=== PATIENT | female | born 1985 | race Caucasian/White ===

== ENCOUNTER 2023-09-24 14:43 | Emergency (ER) | payer SELFPAY ==
[2023-09-24 14:57] VITALS: BP 132/95
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
[2023-09-24] MEDS: TYLENOL 650 MG PO (16:27)
[2023-09-24] MEDS: LIDOCAINE 4% PATCH 1 PATCH TOPICAL (16:28)
== END 2023-09-24 20:40 | disposition home or self-care (01) ==
LOC: EMR 14:43
PROVIDERS: EMERGENCY PHYSICIAN Student in an Organized Health Care Education/Training Program
DX: M54.2 Cervicalgia (principal); M25.512 Pain in left shoulder; M25.551 Pain in right hip; V49.40XA Driver injured in collision with unspecified motor vehicles in traffic accident, initial encounter; Y92.410 Unspecified street and highway as the place of occurrence of the external cause
CPT/HCPCS: 99284; 72125; 73030; 73110; 73140; 73502; 73590

== ENCOUNTER 2024-03-24 04:27 | Emergency (ER) | payer OTHER, SELFPAY ==
[2024-03-24 04:32] VITALS: BP 110/75
[2024-03-24 05:00] LABS: % Basophils 0.2 % (0-2); % Eosinophils 0.4 % (0-6); % Immature Granulocytes 0.5 % (0-0.5); % Lymphocytes 2.7 % (20.5-51.1); % Monocytes 2.8 % (1.7-9.3); % Neutrophils 93.4 % (42.2-75.2); Absolute Immature Granulocytes 0.1 10^3/uL (0-0.05); Absolute Lymphocytes 0.3 10^3/uL (1.2-3.4); Absolute Monocytes 0.3 10^3/uL (0.1-0.6); Absolute Neutrophils 8.9 10^3/uL (1.4-6.5); Hemoglobin 12.3 g/dL (12.0-16.0); Mean Corp Hgb Conc. 36.2 g/dL (33.0-37.0); Mean Corpuscular Hgb 32.1 pg (27.0-31.0); Mean Corpuscular Volume 88.8 fL (81.0-99.0); Mean Platelet Volume 9.8 fL (7.4-10.4); Nucleated Red Blood Cells % 0 %; Platelet Count 198 10^3/uL (130-400); Red Blood Cell Count 3.83 10^6/uL (4.20-5.40); Red Cell Dist. Width 13.1 % (11.5-14.5); White Blood Cell Count 9.5 10^3/uL (4.8-10.8)
[2024-03-24 05:15] LABS: ALT (SGPT) 13 U/L (0-35); AST (SGOT) 19 U/L (14-36); Albumin 3.9 g/dl (3.5-5.0); Alkaline Phosphatase 57 U/L (38-126); Blood Urea Nitrogen 3 mg/dl (7-17); Calcium 8.8 mg/dl (8.4-10.2); Carbon Dioxide 21 mmol/L (22-30); Chloride 101 mmol/L (98-107); Glucose 118 mg/dl (70-99); Potassium 3.5 mmol/L (3.5-5.1); Sodium 133 mmol/L (135-145); Total Protein 6.4 g/dl (6.3-8.2); eGFR > 60.00
[2024-03-24 07:29] VITALS: BP 126/73
--- NOTE | 2024-03-24 07:45 | ED.GENMED ---
History of Present Illness
General
Chief Complaint: Abdominal Symptoms
Time Seen by Provider: 03/24/24 07:35
History of Present Illness
History of Present Illness:
38-year-old female presents to the emergency department for evaluation of nausea and vomiting beginning today. She has also had mild diarrhea. She is 18 weeks . She has been feeling movements until today and she feels nothing
currently. No vaginal discharge or bleeding. No fever or chills.
Past History
Past History
ED Past Medical History: Other (Vertigo)
ED Past Surgical History: Cholecystectomy and
Social History
Tobacco: Non-smoker
Alcohol: Occasional
Personal:
Living: with family
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
Review of Systems
Review of Systems
Allergies reviewed?: Yes
All Other Systems: ROS reviewed and negative except as documented in HPI and ROS
Phy Exam
Physical Exam
Physical Exam:
GEN: Well appearing, NAD, WDWN
HEENT: Oral mucosa moist, no scleral icterus
Cardiac: Regular rate and rhythm, no murmur
Lung: No respiratory distress, no tachypnea, lungs clear to auscultation bilaterally
MSK: No gross deformity or injuries
Skin: Good color, no pallor or jaundice, no rashes
Neuro: AO x3, moves all extremities freely
Psych: Calm, cooperative
Course
Orders/Labs/Results
Orders:
Orders
03/24/24 04:42
Complete Blood Count/With Diff Urgent
Comprehensive Metabolic Panel Urgent
03/24/24 07:18
Electrocardiogram (*1) Urgent
Reason for Study: Chest Pain
EKG- Treatment ONCE
03/24/24 07:44
Ondansetron Injectable [Zofran] 4 mg IV NOW STA
US Limited Urgent
Comment:
Reason For Exam: 2nd trimester pelvic pain/ low movement
03/24/24 07:45
Ondansetron Injectable [Zofran] 4 mg .ROUTE .STK-MED ONE
03/24/24 09:22
Acetaminophen [Tylenol] 1,000 mg PO NOW STA
Abnormal Lab Results
03/24/24
04:42
RBC 3.83 L 10^6/uL
(4.20-5.40)
Hct 34.0 L %
(37.0-47.0)
MCH 32.1 H pg
(27.0-31.0)
Abs Immat Gran (auto) 0.1 H 10^3/uL
(0-0.05)
Absolute Neuts (auto) 8.9 H 10^3/uL
(1.4-6.5)
Absolute Lymphs (auto) 0.3 L 10^3/uL
(1.2-3.4)
Neutrophils % 93.4 H %
(42.2-75.2)
Lymphocytes % 2.7 L %
(20.5-51.1)
Sodium 133 L mmol/L
(135-145)
Carbon Dioxide 21 L mmol/L
(22-30)
BUN 3 L mg/dl
(7-17)
Creatinine 0.4 L mg/dL
(0.6-1.0)
Glucose 118 H mg/dl
(70-99)
03/24/24 04:42
03/24/24 04:42
Vital Signs
Initial and Last Documented VS:
Initial Vital Signs
Temp Pulse Resp BP Pulse Ox
99.2 F 101 18 110/75 100
03/24/24 04:32 03/24/24 04:32 03/24/24 04:32 03/24/24 04:32 03/24/24 04:32
Last Documented Vital Signs
Temp Pulse Resp BP Pulse Ox
98.5 F 98 16 102/60 98
03/24/24 09:29 03/24/24 09:29 03/24/24 09:29 03/24/24 09:29 03/24/24 09:29
MDM/Problems Addressed
MDM/Problems Addressed:
Ultrasound performed showing no evidence for distress at this time. Most likely self-limited viral syndrome, discussed supportive care. Patient able to tolerate p.o. fluids at time of discharge
*Critical Care Note
Total Time (30-74mins, 75-104mins- exclusive of procedures): Not Applicable
ED Attending Note
-
Portions of this chart may have been created with voice recognition software.� Occasional wrong word or��sound alike� substitutions may have occurred due to the inherent limitations of voice recognition software.
Discharge Plan
Departure
Patient Disposition: Home (Routine Discharge)
Date of Disposition: 03/24/24
Time of Disposition: 09:52
Patient with high blood pressure during this ER visit?: No
Discharge Problem:
Gastroenteritis
Instructions: Nausea and Vomiting, Adult (DC)
Prescriptions:
New
ondansetron 4 mg tablet,disintegrating
4 mg PO TIDPRN PRN (Reason: nausea/vomiting) Qty: 20 0RF
No Action
acetaminophen 325 MG tablet
650 mg PO Q3HPRN PRN (Reason: mild pain) Qty: 0 0RF
sennosides-docusate sodium 1 TABLET tablet
1 tab PO DAILYPRN PRN (Reason: constipation) Qty: 0 0RF
ondansetron 4 mg tablet,disintegrating
4 mg PO Q8H PRN (Reason: nausea and vomiting) 5 Days Qty: 14 0RF
meclizine 25 mg tablet
25 mg PO BID PRN (Reason: dizziness) Qty: 20 0RF
Referrals:
NONE,* [Family Provider] -
Interventions
Interventions:
*Risk Screen - Suicide Last Done: 03/24/24 04:32
*General Assessment Last Done: 03/24/24 04:32
*Neglect/Abuse Screening Last Done: 03/24/24 04:32
ED- Fall Risk Assessment Last Done: 03/24/24 09:29
*ED COVID-19 Vaccine History Last Done: 03/24/24 04:32
*Nursing Disposition Last Done: 03/24/24 10:00
JV-Tbdahw-Klonpvtixo Assessment Last Done: 03/24/24 09:29
Discharge Date and Time
Discharge Date/Time: 03/24/24 10:00
Print Language: VENEZUELAN
[2024-03-24] MEDS: ZOFRAN 4 MG IV (07:47)
[2024-03-24] MEDS: TYLENOL 1000 MG PO (09:26)
[2024-03-24 09:28] VITALS: BMI 36.9
[2024-03-24 09:29] VITALS: BP 102/60
== END 2024-03-24 10:00 | disposition home or self-care (01) ==
LOC: EMR 04:27
PROVIDERS: Student in an Organized Health Care Education/Training Program; EMERGENCY PHYSICIAN Emergency Medicine
DX: K52.9 Noninfective gastroenteritis and colitis, unspecified (principal); O26.892 Other specified pregnancy related conditions, second trimester; Z3A.18 18 weeks gestation of pregnancy
CPT/HCPCS: 99285; 96374; 76815; 80053; 85025; 93005

== ENCOUNTER 2024-03-26 17:03 | Emergency (ER) | payer OTHER, SELFPAY ==
[2024-03-26 17:06] VITALS: BP 123/80
[2024-03-26 17:34] LABS: % Basophils 0.3 % (0-2); % Eosinophils 0.7 % (0-6); % Immature Granulocytes 0.3 % (0-0.5); % Lymphocytes 11.4 % (20.5-51.1); % Monocytes 5.3 % (1.7-9.3); Absolute Eosinophils 0.1 10^3/uL (0-0.7); Absolute Lymphocytes 0.9 10^3/uL (1.2-3.4); Absolute Monocytes 0.4 10^3/uL (0.1-0.6); Absolute Neutrophils 6.3 10^3/uL (1.4-6.5); Hematocrit 37.7 % (37.0-47.0); Hemoglobin 13.1 g/dL (12.0-16.0); Mean Corp Hgb Conc. 34.7 g/dL (33.0-37.0); Mean Corpuscular Hgb 31.7 pg (27.0-31.0); Mean Corpuscular Volume 91.3 fL (81.0-99.0); Mean Platelet Volume 9.8 fL (7.4-10.4); Nucleated Red Blood Cells % 0 %; Platelet Count 212 10^3/uL (130-400); Red Blood Cell Count 4.13 10^6/uL (4.20-5.40); Red Cell Dist. Width 13.5 % (11.5-14.5); White Blood Cell Count 7.6 10^3/uL (4.8-10.8)
[2024-03-26 17:55] LABS: ALT (SGPT) 14 U/L (0-35); AST (SGOT) 20 U/L (14-36); Albumin 4.3 g/dl (3.5-5.0); Alkaline Phosphatase 67 U/L (38-126); Blood Urea Nitrogen 2 mg/dl (7-17); Carbon Dioxide 24 mmol/L (22-30); Chloride 101 mmol/L (98-107); Glucose 96 mg/dl (70-99); Potassium 3.1 mmol/L (3.5-5.1); Sodium 135 mmol/L (135-145); Total Bilirubin 1.1 mg/dl (0.2-1.3); eGFR > 60.00
[2024-03-26 19:05] VITALS: BP 122/74
[2024-03-26] MEDS: NSS 1000 IV ×2 (19:08→21:41)
[2024-03-26] MEDS: ZOFRAN 4 MG IV (19:09)
--- NOTE | 2024-03-26 20:13 | ED.GENMED ---
History of Present Illness
<Brian Berman PA-C - Last Filed: 03/26/24 21:35>
General
Chief Complaint: Abdominal Symptoms
Exam Limitations: none
Time Seen by Provider: 03/26/24 18:17
History of Present Illness
History of Present Illness:
38-year-old female currently 18 weeks presents with recurrent nausea and vomiting now with diarrhea. She was here several nights ago for the same. No known sick contacts. She states his vomiting is different than what she typically has
with her pregnancies. She notes achiness with sore throat and cough now as well. No blood in the vomit or the stool. No urinary symptoms. No vaginal bleeding.
Past History
<Brian Berman PA-C - Last Filed: 03/26/24 21:35>
Past History
ED Past Medical History: Other (Vertigo)
ED Past Surgical History: Cholecystectomy and
Social History
Tobacco: Non-smoker
Alcohol: Occasional
Personal:
Living: with family
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
Phy Exam
<Brian Berman PA-C - Last Filed: 03/26/24 21:35>
Physical Exam
Physical Exam:
General: Well-appearing female no acute respiratory distress
HEENT: Normocephalic atraumaticPosterior pharynx without erythema or exudate neck is supple no adenopathy heart: Regular rate and rhythm no murmurs
Lungs: Clear no wheeze
Abd: soft, nontender, nondistended
Extremities: No cyanosis or edema
Course
<LAURA Mathews Last Filed: 03/26/24 21:35>
Orders/Labs/Results
Orders:
Orders
03/26/24 17:21
Complete Blood Count/With Diff Urgent
Comprehensive Metabolic Panel Urgent
03/26/24 18:47
0.9% Sodium Chloride 1000 ml [Nss] 1,000 ml IV BOLUS
Ondansetron Injectable [Zofran] 4 mg IV NOW STA
03/26/24 20:20
COVID-19 Antigen Urgent
Source: Nasal Swab
Influenza A+B Rapid Molecular Urgent
DIANA Source: Nasal Swab
Specimen Description:
03/26/24 21:26
0.9% Sodium Chloride 1000 ml [Nss] 1,000 ml IV BOLUS
Oseltamivir Phosphate [Tamiflu] 75 mg PO NOW STA
Abnormal Lab Results
03/26/24
17:21
RBC 4.13 L 10^6/uL
(4.20-5.40)
MCH 31.7 H pg
(27.0-31.0)
Absolute Lymphs (auto) 0.9 L 10^3/uL
(1.2-3.4)
Neutrophils % 82.0 H %
(42.2-75.2)
Lymphocytes % 11.4 L %
(20.5-51.1)
Potassium 3.1 L mmol/L
(3.5-5.1)
BUN 2 L mg/dl
(7-17)
Creatinine 0.5 L mg/dL
(0.6-1.0)
03/26/24 17:21
03/26/24 17:21
Vital Signs
Initial and Last Documented VS:
Initial Vital Signs
Temp Pulse Resp BP Pulse Ox
37.0 C 97 18 123/80 99
03/26/24 17:06 03/26/24 17:06 03/26/24 17:06 03/26/24 17:06 03/26/24 17:06
Last Documented Vital Signs
Temp Pulse Resp BP Pulse Ox
37.0 C 94 24 108/67 99
03/26/24 17:06 03/26/24 22:15 03/26/24 22:15 03/26/24 22:00 03/26/24 22:15
<Isaura Lee PA-C - Last Filed: 03/26/24 23:49>
Orders/Labs/Results
Orders:
Orders
03/26/24 17:21
Complete Blood Count/With Diff Urgent
Comprehensive Metabolic Panel Urgent
03/26/24 18:47
0.9% Sodium Chloride 1000 ml [Nss] 1,000 ml IV BOLUS
Ondansetron Injectable [Zofran] 4 mg IV NOW STA
03/26/24 20:20
COVID-19 Antigen Urgent
Source: Nasal Swab
Influenza A+B Rapid Molecular Urgent
DIANA Source: Nasal Swab
Specimen Description:
03/26/24 21:26
0.9% Sodium Chloride 1000 ml [Nss] 1,000 ml IV BOLUS
Oseltamivir Phosphate [Tamiflu] 75 mg PO NOW STA
Abnormal Lab Results
03/26/24
17:21
RBC 4.13 L 10^6/uL
(4.20-5.40)
MCH 31.7 H pg
(27.0-31.0)
Absolute Lymphs (auto) 0.9 L 10^3/uL
(1.2-3.4)
Neutrophils % 82.0 H %
(42.2-75.2)
Lymphocytes % 11.4 L %
(20.5-51.1)
Potassium 3.1 L mmol/L
(3.5-5.1)
BUN 2 L mg/dl
(7-17)
Creatinine 0.5 L mg/dL
(0.6-1.0)
03/26/24 17:21
03/26/24 17:21
Vital Signs
Initial and Last Documented VS:
Initial Vital Signs
Temp Pulse Resp BP Pulse Ox
37.0 C 97 18 123/80 99
03/26/24 17:06 03/26/24 17:06 03/26/24 17:06 03/26/24 17:06 03/26/24 17:06
Last Documented Vital Signs
Temp Pulse Resp BP Pulse Ox
37.0 C 94 24 108/67 99
03/26/24 17:06 03/26/24 22:15 03/26/24 22:15 03/26/24 22:00 03/26/24 22:15
<Brian Berman PA-C - Last Filed: 03/26/24 21:35>
MDM/Problems Addressed
Differential Diagnosis Includes:
Patient with vomiting and diarrhea with sore throat and myalgias. Consider viral illness. Abdominal exam is benign do not suspect obstruction. Check labs for electrolyte abnormality. Will hydrate and give Zofran
<Isaura Lee PA-C - Last Filed: 03/26/24 23:49>
*Critical Care Note
Total Time (30-74mins, 75-104mins- exclusive of procedures): Not Applicable
<Brian Berman PA-C - Last Filed: 03/26/24 21:35>
Update Note
Update Note:
Patient reevaluated still with slight nausea and fatigue. A second bag of fluid ordered. She did test positive for the flu. She is . Will order her first dose of Tamiflu. Plan will be to discharge after second bag of fluid with
prescription for Tamiflu
<Isaura Lee PA-C - Last Filed: 03/26/24 23:49>
Update Note
Update Note:
Patient reevaluated still with slight nausea and fatigue. A second bag of fluid ordered. She did test positive for the flu. She is . Will order her first dose of Tamiflu. Plan will be to discharge after second bag of fluid with
prescription for Tamiflu
2350
IVF went in slowly due to IV positionning but ultimately completed and pt was tolerating crakcers and able to d/c home
ED Attending Note
<Brian Berman PA-C - Last Filed: 03/26/24 21:35>
-
Portions of this chart may have been created with voice recognition software.� Occasional wrong word or��sound alike� substitutions may have occurred due to the inherent limitations of voice recognition software.
Discharge Plan
Departure
Patient Disposition: Home (Routine Discharge)
Date of Disposition: 03/26/24
Time of Disposition: 23:48
Patient with high blood pressure during this ER visit?: No
Condition: Fair
Covid-19: Not Applicable
Discharge Problem:
Influenza A
Instructions: Nausea and Vomiting, Adult (DC)
Prescriptions:
New
oseltamivir [Tamiflu] 75 mg capsule
75 mg PO BID Qty: 10 0RF
No Action
acetaminophen 325 MG tablet
650 mg PO Q3HPRN PRN (Reason: mild pain) Qty: 0 0RF
sennosides-docusate sodium 1 TABLET tablet
1 tab PO DAILYPRN PRN (Reason: constipation) Qty: 0 0RF
ondansetron 4 mg tablet,disintegrating
4 mg PO Q8H PRN (Reason: nausea and vomiting) 5 Days Qty: 14 0RF
meclizine 25 mg tablet
25 mg PO BID PRN (Reason: dizziness) Qty: 20 0RF
ondansetron 4 mg tablet,disintegrating
4 mg PO TIDPRN PRN (Reason: nausea/vomiting) Qty: 20 0RF
Referrals:
NONE,* [Family Provider] -
Activity Restrictions/Additional Instructions:
Rest. Drink plenty of fluids. Take Tamiflu as directed. Return here if worse otherwise follow-up with your doctor
Interventions
Interventions:
*Risk Screen - Suicide Last Done: 03/26/24 17:12
*General Assessment Last Done: 03/26/24 21:33
*Neglect/Abuse Screening Last Done: 03/26/24 17:12
ED- Fall Risk Assessment Last Done: 03/26/24 19:13
*ED COVID-19 Vaccine History Last Done: 03/26/24 17:11
KU-Hvhfhh-Cxsbwwmfjp Assessment Last Done: 03/26/24 19:13
Discharge Date and Time
Print Language: TAJIK
[2024-03-26 20:29] VITALS: BP 99/61
[2024-03-26 20:50] LABS: COVID-19 Antigen Negative (Negative)
[2024-03-26] MEDS: TAMIFLU 75 MG PO (21:41)
[2024-03-26 21:44] VITALS: BP 103/78
[2024-03-26 22:00] VITALS: BP 108/67
[2024-03-26 23:32] VITALS: BP 109/62
== END 2024-03-27 00:11 | disposition home or self-care (01) ==
LOC: EMR 17:03
PROVIDERS: Physician Assistant; Student in an Organized Health Care Education/Training Program; EMERGENCY PHYSICIAN Emergency Medicine
DX: O99.512 Diseases of the respiratory system complicating pregnancy, second trimester (principal); J10.1 Influenza due to other identified influenza virus with other respiratory manifestations; O21.9 Vomiting of pregnancy, unspecified; O09.522 Supervision of elderly multigravida, second trimester; Z90.49 Acquired absence of other specified parts of digestive tract; Z3A.18 18 weeks gestation of pregnancy
CPT/HCPCS: 96374; 96361; 99284; 80053; 85025; 87502; 87811

== ENCOUNTER 2024-04-27 20:10 | Emergency (ER) | payer OTHER, SELFPAY ==
[2024-04-27 20:36] VITALS: BP 128/72
[2024-04-27 20:56] LABS: % Basophils 0.4 % (0-2); % Eosinophils 0.6 % (0-6); % Immature Granulocytes 0.3 % (0-0.5); % Lymphocytes 7.8 % (20.5-51.1); % Neutrophils 85.9 % (42.2-75.2); Absolute Basophils 0.1 10^3/uL (0-0.2); Absolute Eosinophils 0.1 10^3/uL (0-0.7); Absolute Monocytes 0.6 10^3/uL (0.1-0.6); Absolute Neutrophils 10.5 10^3/uL (1.4-6.5); Hematocrit 35.9 % (37.0-47.0); Hemoglobin 12.6 g/dL (12.0-16.0); Mean Corp Hgb Conc. 35.1 g/dL (33.0-37.0); Mean Corpuscular Hgb 32.2 pg (27.0-31.0); Mean Corpuscular Volume 91.8 fL (81.0-99.0); Mean Platelet Volume 9.3 fL (7.4-10.4); Nucleated Red Blood Cells % 0 %; Platelet Count 237 10^3/uL (130-400); Red Blood Cell Count 3.91 10^6/uL (4.20-5.40); Red Cell Dist. Width 14.6 % (11.5-14.5); White Blood Cell Count 12.2 10^3/uL (4.8-10.8)
[2024-04-27 21:17] LABS: Blood Urea Nitrogen 3 mg/dl (7-17); Calcium 9.3 mg/dl (8.4-10.2); Carbon Dioxide 21 mmol/L (22-30); Chloride 103 mmol/L (98-107); Glucose 87 mg/dl (70-99); Sodium 131 mmol/L (135-145); eGFR > 60.00
== END 2024-04-27 23:30 ==
LOC: EMR 20:10
PROVIDERS: EMERGENCY PHYSICIAN Emergency Medicine
DX: O21.8 Other vomiting complicating pregnancy (principal); Z3A.22 22 weeks gestation of pregnancy
CPT/HCPCS: 80048; 85025

== ENCOUNTER 2024-07-06 17:19 | Emergency (ER) | payer OTHER, SELFPAY ==
[2024-07-06 17:30] VITALS: BP 136/84
--- NOTE | 2024-07-06 22:23 | ED.SKININJ ---
HPI-Injury
General
Chief Complaint: Skin Problem
Source: patient
Exam Limitations: none
Time Seen by Provider: 07/06/24 21:19
History of Present Illness-Injury
Initial Injury comments:
31-year-old female presents with painful rash to the left side of the face starting 2 to 3 days ago and getting worse. She was thought to have shingles and prescribed Valtrex. Since yesterday she has had 4 doses of Pratima but notes worsening
symptoms. She is currently 33 weeks with her third . She has 2 children at home. She denies fevers. She has a history of eczema. She follows with nurse avionics supervisor here. No vomiting. No vaginal bleeding or abdominal pain. No
other complaints at this time
Past History
Past History
ED Past Medical History: Other (Vertigo)
ED Past Surgical History: Cholecystectomy and
Social History
Tobacco: Non-smoker
Alcohol: Occasional
Personal:
Living: with family
Employment: Employed ([employer])
Phy Exam
Physical Exam
Physical Exam:
General: Well-appearing female no acute respiratory distress HEENT normocephalic atraumatic neck is supple
Heart: Regular rate and rhythm
Lungs: Clear no wheeze
Skin: Raised thickened skin with hyperemic areas over the left side of the face and the facial nerve distribution there is involvement of her cheek and chin and lateral to the left eye
Left eye was examined with fluorescein stain and Young lamp. There is no increased stain uptake over the cornea to suggest ulcer. The lids were everted there is no foreign bodies
Extremities: No cyanosis
Course
Orders/Labs/Results
Orders:
Orders
07/06/24 21:48
Fluorescein Sodium [Ful-Nazia] 1 mg .ROUTE .STK-MED ONE
Tetracaine HCl [Tetracaine 0.5% Ophthalmic Solution] 1 drop .ROUTE .STK-MED ONE
07/06/24 22:22
Prednisone [Deltasone] 50 mg PO NOW STA
Vital Signs
Initial and Last Documented VS:
Initial Vital Signs
Temp Pulse Resp BP Pulse Ox
98.6 F 101 20 136/84 98
07/06/24 17:30 07/06/24 17:30 07/06/24 17:30 07/06/24 17:30 07/06/24 17:30
Last Documented Vital Signs
Temp Pulse Resp BP Pulse Ox
98.6 F 101 20 136/84 98
07/06/24 17:30 07/06/24 17:30 07/06/24 17:30 07/06/24 17:30 07/06/24 17:30
MDM/Problems Addressed
Differential Diagnosis Includes:
Rash left side of face and the facial nerve distribution. The location and distribution of the rash consistent with shingles. She has underlying history of eczema she may have a eczema flaring up as well. No draining lesions. This does not cross
the midline. Long discussion was had with patient significant other and involved CROOK OPERATOR. CROOK OPERATOR feels comfortable with a steroid taper. She has not taken this at this time. She has been using topical antihistamines which are not helping.
Offered her admission for IV antivirals given current and location versus go home with oral steroids and continuation of Valtrex. She opted to go home. Think this is reasonable. There is no involvement of the eye at this time.
*Critical Care Note
Total Time (30-74mins, 75-104mins- exclusive of procedures): Not Applicable
ED Attending Note
-
Portions of this chart may have been created with voice recognition software.� Occasional wrong word or��sound alike� substitutions may have occurred due to the inherent limitations of voice recognition software.
Discharge Plan
Departure
Patient Disposition: Home (Routine Discharge)
Date of Disposition: 07/06/24
Time of Disposition: 22:27
Patient with high blood pressure during this ER visit?: No
Discharge Problem:
Shingles
Instructions: Shingles
Prescriptions:
New
prednisone 10 mg Tablet
See Rx Instructions .ROUTE .COMPLEX Qty: 30 0RF
Rx Instructions:
Take By Mouth:
40 mg daily x3 days, 30 mg daily x3 days,
20 mg daily x3 days, 10 mg daily x3 days.
No Action
acetaminophen 325 MG tablet
650 mg PO Q3HPRN PRN (Reason: mild pain) Qty: 0 0RF
sennosides-docusate sodium 1 TABLET tablet
1 tab PO DAILYPRN PRN (Reason: constipation) Qty: 0 0RF
ondansetron 4 mg tablet,disintegrating
4 mg PO Q8H PRN (Reason: nausea and vomiting) 5 Days Qty: 14 0RF
meclizine 25 mg tablet
25 mg PO BID PRN (Reason: dizziness) Qty: 20 0RF
ondansetron 4 mg tablet,disintegrating
4 mg PO TIDPRN PRN (Reason: nausea/vomiting) Qty: 20 0RF
oseltamivir [Tamiflu] 75 mg capsule
75 mg PO BID Qty: 10 0RF
Referrals:
NONE,* [Family Provider] -
Activity Restrictions/Additional Instructions:
Continue cool compresses Valtrex and Tylenol for pain. Use steroid as directed. Please return here for increasing pain spreading of the rash blurry vision eye discomfort or other concerning finding. Follow-up with your CROOK OPERATOR provider otherwise.
Interventions
Interventions:
*Risk Screen - Suicide Last Done: 07/06/24 17:30
*Neglect/Abuse Screening Last Done: 07/06/24 17:30
*ED- Fall Risk Assessment Last Done: 07/06/24 17:30
Discharge Date and Time
Print Language: ECUADOREAN
[2024-07-06] MEDS: DELTASONE 50 MG PO (22:33)
[2024-07-06 22:40] VITALS: BP 131/72
== END 2024-07-06 22:45 | disposition home or self-care (01) ==
LOC: EMR 17:19
PROVIDERS: EMERGENCY PHYSICIAN Student in an Organized Health Care Education/Training Program
DX: O98.513 Other viral diseases complicating pregnancy, third trimester (principal); B02.9 Zoster without complications; Z3A.33 33 weeks gestation of pregnancy; Z90.49 Acquired absence of other specified parts of digestive tract
CPT/HCPCS: 99283

== ENCOUNTER 2024-08-15 13:49 | Observation (INO) | payer OTHER, SELFPAY ==
[2024-08-15 14:14] VITALS: BP 121/75; BMI 34.4
== END 2024-08-15 15:54 | disposition home or self-care (01) ==
LOC: LDRP 13:49
PROVIDERS: ADMITTING PHYSICIAN Advanced Practice Midwife
DX: O47.1 False labor at or after 37 completed weeks of gestation (principal); Z3A.38 38 weeks gestation of pregnancy
CPT/HCPCS: 36415; 86850; 86900; 86901; G0378

== ENCOUNTER 2024-08-31 14:59 | Inpatient (IN) | payer OTHER, SELFPAY ==
[2024-08-31 15:21] VITALS: BMI 34.2
[2024-08-31 15:22] VITALS: BP 111/76
[2024-08-31 15:59] LABS: Hematocrit 33.1 % (37.0-47.0); Hemoglobin 11.3 g/dL (12.0-16.0); Mean Corp Hgb Conc. 34.1 g/dL (33.0-37.0); Mean Corpuscular Volume 90.4 fL (81.0-99.0); Nucleated Red Blood Cells % 0 %; Platelet Count 255 10^3/uL (130-400); Red Cell Dist. Width 13.8 % (11.5-14.5)
[2024-08-31 16:28] LABS: Glucose - Point of Care 111 mg/dl (70-99)
[2024-08-31] MEDS: STADOL 1 MG IV ×2 (20:15→21:29)
[2024-08-31 20:23] LABS: Glucose - Point of Care 102 mg/dl (70-99)
[2024-08-31] MEDS: LR 1000 IV (21:33)
[2024-08-31] MEDS: FENTANYL/BUPIVACAINE 100 EPIDURAL (22:13)
[2024-08-31] MEDS: SUBLIMAZE 100 MCG EPIDURAL (22:13)
[2024-09-01 00:16] LABS: Glucose - Point of Care 94 mg/dl (70-99)
[2024-09-01] MEDS: TUMS CHEWABLE TABLET 400 MG PO (00:19)
[2024-09-01] MEDS: LR 1000 IV (01:22)
[2024-09-01] MEDS: PHENERGAN 50.5 MG IV (01:56)
[2024-09-01 02:18] LABS: Glucose - Point of Care 101 mg/dl (70-99)
[2024-09-01 04:18] LABS: Glucose - Point of Care 103 mg/dl (70-99)
[2024-09-01] MEDS: FENTANYL/BUPIVACAINE 100 EPIDURAL (05:14)
[2024-09-01 06:17] LABS: Glucose - Point of Care 109 mg/dl (70-99)
[2024-09-01] MEDS: PITOCIN 30 UNITS/NSS 500 ML IV ×2 (06:45→08:28)
[2024-09-01 08:01] LABS: Glucose - Point of Care 104 mg/dl (70-99)
[2024-09-01] MEDS: MOTRIN 600 MG PO (19:55)
[2024-09-01] MEDS: COLACE 100 MG PO (19:55)
[2024-09-01] MEDS: TYLENOL 650 MG PO (23:23)
[2024-09-02] MEDS: TYLENOL 650 MG PO ×3 (03:35→19:27)
[2024-09-02] MEDS: MOTRIN 600 MG PO ×3 (03:35→19:28)
[2024-09-02 04:06] LABS: Hematocrit 32.9 % (37.0-47.0); Hemoglobin 11.1 g/dL (12.0-16.0)
[2024-09-02] MEDS: COLACE 100 MG PO ×2 (08:22→19:28)
[2024-09-03 00:20] LABS: Glucose - Point of Care 87 mg/dl (70-99)
[2024-09-03] MEDS: MOTRIN 600 MG PO ×2 (01:38→08:27)
[2024-09-03] MEDS: TYLENOL 650 MG PO (01:39)
[2024-09-03] MEDS: COLACE PO (08:17)
[2024-09-05 15:21] LABS: Syphilis/T. pallidum Ab Reflex Negative (Negative)
== END 2024-09-03 10:51 | disposition home or self-care (01) | DRG 807 ==
LOC: LDRP 14:59
PROVIDERS: Advanced Practice Midwife; ADMITTING PHYSICIAN Obstetrics & Gynecology
PROC: 10E0XZZ Delivery of Products of Conception, External Approach (ICD-10-PCS; 2024-09-01)
PROC: 0UQMXZZ Repair Vulva, External Approach (ICD-10-PCS; 2024-09-01)
PROC: 0HQ9XZZ Repair Perineum Skin, External Approach (ICD-10-PCS; 2024-09-01)
DX: O48.0 Post-term pregnancy (principal); Z37.0 Single live birth; O34.219 Maternal care for unspecified type scar from previous cesarean delivery; O70.0 First degree perineal laceration during delivery; O71.82 Other specified trauma to perineum and vulva; O69.81X0 Labor and delivery complicated by cord around neck, without compression, not applicable or unspecified; Z3A.41 41 weeks gestation of pregnancy
CPT/HCPCS: 82962; 85014; 85018; 85025; 86780; 86850; 86900; 86901

== ENCOUNTER 2024-11-22 21:56 | Emergency (ER) | payer OTHER, SELFPAY ==
[2024-11-22 21:58] VITALS: BP 134/84
--- NOTE | 2024-11-23 00:03 | ED.GENMED ---
History of Present Illness
General
Chief Complaint: Musculo-Skeletal Complaint
Source: patient
Exam Limitations: none
Time Seen by Provider: 11/22/24 23:47
Nursing documentation reviewed up to this point in time: agreed with
History of Present Illness
History of Present Illness:
39-year-old female presenting to the emergency department today with concerns of right wrist pain over the past week denies any specific inciting events. Does have some mild swelling mainly to the area proximal to the thumb at the wrist. No
redness or warmth no fevers.
Past History
Past History
ED Past Medical History: Other (Vertigo)
ED Past Surgical History: Cholecystectomy and
Social History
Tobacco: Non-smoker
Alcohol: Occasional
Personal:
Living: with family
Employment: Employed (cook restaurant)
Review of Systems
Review of Systems
Allergies reviewed?: Yes
All Other Systems: ROS reviewed and negative except as documented in HPI and ROS
Phy Exam
Physical Exam
Physical Exam:
GENERAL: Alert , in no apparent distress
EYE: pupils equal and reactive
NECK: Supple, no significant adenopathy.
ENT: o/p clr, mmm.
CARDIAC: Regular rate and rhythm .
LUNGS: Clear breath sounds bilaterally, no acute respiratory distress, no wheezes/rales/rhonchi
ABDOMEN: Soft, without focal tenderness, no r/g, no cvat
NEUROLOGICAL: Alert and oriented, no focal neuro deficits
SKIN: Warm and dry, skin intact.
MUSCULOSKELETAL: Mild swelling to the right wrist mainly just proximal to the thumb on the radial aspect no redness or warmth mild swelling. No edema, well perfused.
PSYCH: Normal and appropriate interaction.
Course
Orders/Labs/Results
Orders:
Orders
11/22/24 22:00
CR Wrist - Right Min 3 Views Urgent
Comment:
Reason For Exam: pain
Vital Signs
Initial and Last Documented VS:
Initial Vital Signs
Temp Pulse Resp BP Pulse Ox
98.0 F 71 18 134/84 99
11/22/24 21:58 11/22/24 21:58 11/22/24 21:58 11/22/24 21:58 11/22/24 21:58
Last Documented Vital Signs
Temp Pulse Resp BP Pulse Ox
98.0 F 71 18 134/84 99
11/22/24 21:58 11/22/24 21:58 11/22/24 21:58 11/22/24 21:58 11/22/24 21:58
MDM/Problems Addressed
MDM/Problems Addressed:
31-year-old female presenting to the emergency department today with concerns of right wrist pain no specific inciting event. Has some mild swelling to the ulnar wrist on the palmar aspect. No redness or warmth some mild swelling. Neuro vastly
intact. Unclear specific cause of pain no red flag symptoms no signs of infection no fracture on x-ray. Given a splint and advised for Ortho follow-up.
*Pulse Oximetry
SaO2: 99
Oxygen Mode of Delivery: Room air
Patient hypoxic: no (99)
*Critical Care Note
Total Time (30-74mins, 75-104mins- exclusive of procedures): Not Applicable
ED Attending Note
-
Portions of this chart may have been created with voice recognition software.� Occasional wrong word or��sound alike� substitutions may have occurred due to the inherent limitations of voice recognition software.
Discharge Plan
Departure
Patient Disposition: Home (Routine Discharge)
Date of Disposition: 11/23/24
Time of Disposition: 00:03
Patient with high blood pressure during this ER visit?: No
Condition: Good
Covid-19: Not Applicable
Discharge Problem:
Pain, wrist
Instructions: Muscle and Bone Pain (DC)
Prescriptions:
No Action
vit-iron fum-folic ac [ Tablet] 28 mg iron- 800 mcg Tablet
1 tab PO DAILY
docusate sodium 100 mg Capsule
100 mg PO BID Qty: 0 0RF
acetaminophen 325 mg Tablet
650 mg PO Q4HPRN PRN (Reason: mild pain) Qty: 0 0RF
ibuprofen 600 mg Tablet
600 mg PO Q6HPRN PRN (Reason: moderate pain/cramps) Qty: 0 0RF
Referrals:
NONE,* [Family Provider, Internal Medicine]
Jason Bear MD [Active, Orthopedics] - Follow up in 5-7 days
Activity Restrictions/Additional Instructions:
You came to the emergency department today with concerns of wrist discomfort. Please wear the splint rest ice and elevate help with symptoms and follow-up with Ortho if symptoms are persisting over the next week or so. Return for any worsening,
new or concerning symptoms.
Interventions
Interventions:
*General Assessment Last Done: 11/22/24 21:58
*Neglect/Abuse Screening Last Done: 11/22/24 23:59
*ED- Fall Risk Assessment Last Done: 11/22/24 23:59
ED-Musculoskeletal Assessment Last Done: 11/22/24 23:59
Discharge Date and Time
Print Language: [email or web address]
== END 2024-11-23 00:15 | disposition home or self-care (01) ==
LOC: EMR 21:56
PROVIDERS: EMERGENCY PHYSICIAN Emergency Medicine
DX: M25.531 Pain in right wrist (principal)
CPT/HCPCS: 99283; 73110